=== PATIENT | female | born 1940 | race Asian ===

== ENCOUNTER 2021-01-03 12:40 | Emergency (ER) | payer MEDICARE ==
[~2021-01-03] VITALS: Ht 154.9 cm; Wt 45.5 kg
[~2021-01-03 12:40] MED LIST: NOCURR
[2021-01-03] MEDS ORDERED: PERTUSS(ACELL),DIPH,TET VAC/PF 0.5 ML SYRINGE IM. ONE (13:15)
[2021-01-03] MEDS ORDERED: CIPROFLOXACIN HCL 250 MG TABLET PO ONE (13:15)
[2021-01-03 14:39] VITALS: BP 141/75
== END 2021-01-03 14:47 | disposition home or self-care (01) ==
LOC: EMS 12:40
DX: S91.331A Puncture wound without foreign body, right foot, initial encounter (principal); W22.8XXA Striking against or struck by other objects, initial encounter; Y93.89 Activity, other specified; Y92.89 Other specified places as the place of occurrence of the external cause; Y99.8 Other external cause status
CPT/HCPCS: 90471; 90715; 99283